=== PATIENT | female | born 2000 | race Caucasian/White ===

== ENCOUNTER 2018-11-10 11:28 | Emergency (ER) | payer OTHER ==
[~2018-11-10] VITALS: Ht 162.6 cm; Wt 63.6 kg
[2018-11-10] MEDS ORDERED: IBUPROFEN 600 MG TABLET PO ONE (12:30)
[2018-11-10] MEDS ORDERED: CEPHALEXIN MONOHYDRATE 500 MG CAPSULE PO ONE (12:30)
[2018-11-10 13:23] VITALS: BP 121/72
== END 2018-11-10 13:47 | disposition home or self-care (01) ==
LOC: EMS 11:28
DX: S80.262A Insect bite (nonvenomous), left knee, initial encounter (principal); L03.116 Cellulitis of left lower limb; F12.90 Cannabis use, unspecified, uncomplicated; W57.XXXA Bitten or stung by nonvenomous insect and other nonvenomous arthropods, initial encounter; Y93.89 Activity, other specified; Y92.89 Other specified places as the place of occurrence of the external cause; Y99.8 Other external cause status